=== PATIENT | female | born 1970 | race Caucasian/White ===

== ENCOUNTER 2019-06-04 12:34 | Emergency (ER) | payer MEDICAID ==
[~2019-06-04] VITALS: Ht 157.5 cm; Wt 85.7 kg
[2019-06-04 12:44] VITALS: Ht 157.5 cm; Wt 85.7 kg
[2019-06-04 13:26] LABS: BASOPHIL % 0.5 % (0-2)
[2019-06-04 13:27] LABS: PLATELET COUNT 447 x10^3mcL (130-400); RED CELL DISTRIBUTION WIDTH 15.8 % (11.5-14.5)
[2019-06-04 15:36] LABS: CALCIUM 8.5 mg/dL (8.5-10.1); CHLORIDE SERUM 103 mmol/L (98-107); CREATININE SERUM 0.7 mg/dL (0.6-1.0); GFR1 > 60 mL/min; GLUCOSE SERUM 106 mg/dL (74-106); POTASSIUM SERUM 3.9 mmol/L (3.5-5.1); SODIUM SERUM 138 mmol/L (136-145)
[2019-06-04 15:41] LABS: ALKALINE PHOSPHATASE 86 U/L (46-116); ALT/SGPT 25 U/L (14-59); AST/SGOT 20 U/L (15-37); BILIRUBIN TOTAL 0.3 mg/dL (0.20-1.00); TOTAL PROTEIN, SERUM 7.4 g/dL (6.4-8.2)
[2019-06-04 15:42] LABS: ALBUMIN 3.1 g/dL (3.4-5.0)
[2019-06-04 18:56] VITALS: BP 120/75
== END 2019-06-04 18:56 | disposition home or self-care (01) ==
LOC: ED 12:34
PROVIDERS: Emergency Medicine
DX: R07.89 Other chest pain (principal); R06.00 Dyspnea, unspecified; R11.0 Nausea; R05 Cough; E11.8 Type 2 diabetes mellitus with unspecified complications; Z98.890 Other specified postprocedural states
CPT/HCPCS: 36415; 85378; Q0092; Q9967